=== PATIENT | female | born 1995 | race American Indian/Alaskan Native ===

== ENCOUNTER 2018-07-05 07:24 | Emergency (ER) | payer OTHER ==
[2018-07-05 07:33] VITALS: BP 134/83
[2018-07-05] MEDS ORDERED: NORCO 7.5/325 PO ONE (07:42)
[2018-07-05] MEDS ORDERED: BACTRIM DS PO ONE (07:42)
[2018-07-05] MEDS ORDERED: XYLOCAINE 1% MPF 5 mL INFILTRATI ONE (07:42)
--- NOTE | 2018-07-05 07:43 | Emergency Department Report ---
Abscess Boil HPI - HPI Chief Complaint: Skin/Abscess/Foreign Body Stated Complaint: BOIL/ABSCESS ON BUTTOCK Time Seen by Provider: 07/05/18 07:38 Duration: 5 Days Location: Other (BUTTOCKS) Severity: Mild History: Yes Pain, Yes Purulent Drainage, Yes Previous History, No Fever, No Numbness, No Foreign Body, No Insect Bite HPI: 22 YO AA FEMALE WITH ABSCESS ON R BUTTOCKS. NO FEVER. NO HX OF THE SAME. NO PMH. NO HOME MEDS. Home Medications: Previous Rx's Medication Instructions Recorded Last Taken Type Ibuprofen [Motrin] 800 mg PO Q8HR PRN #30 tablet 07/05/18 Unknown Rx Sulfamethoxazole/Trimethoprim 1 each PO BID #10 tablet 07/05/18 Unknown Rx [Bactrim DS TAB] Allergies/Adverse Reactions: Allergies Allergy/AdvReac Type Severity Reaction Status Date / Time No Known Allergies Allergy Verified 07/05/18 07:31 ED Review of Systems ROS: Stated complaint: BOIL/ABSCESS ON BUTTOCK Other details as noted in HPI Comment: All other systems reviewed and negative Constitutional: denies: chills Eyes: denies: eye pain ENT: denies: ear pain Respiratory: denies: cough Cardiovascular: denies: dyspnea on exertion Endocrine: denies: flushing Gastrointestinal: denies: nausea Genitourinary: denies: urgency Musculoskeletal: denies: back pain Skin: as per HPI, lesions Neurological: denies: headache Psychiatric: denies: depression Hematological/Lymphatic: denies: easy bleeding ED Past Medical Hx - Past Medical History Previous Medical History?: Yes Hx Diabetes: Yes (taken off Metformin due to hypoglycemia 2013) Additional medical history: HS - Surgical History Past Surgical History?: No - Social History Smoking Status: Current Every Day Smoker Substance Use Type: None - Medications Home Medications: Home Medications Medication Instructions Recorded Confirmed Last Taken Type Ibuprofen [Motrin] 800 mg PO Q8HR PRN #30 tablet 07/05/18 Unknown Rx Sulfamethoxazole/Trimethoprim 1 each PO BID #10 tablet 07/05/18 Unknown Rx [Bactrim DS TAB] ED Abscess Boil Physical Exam - Exam General: Vital signs noted. No distress. Alert and acting appropriately. Size: 3 cm Exam: Yes Tenderness, Yes Fluctuance, Yes Surrounding Cellulites/Erythema, Yes Normal Neurologic Exam, Yes Normal Circulation, No Lymphangitis, No Crepitation, No Heart Murmur I & D Note - I & D Note I & D Note: Local anesthesia with 2% lido. I/D with no 10 blade. purulent drainage. cleaned area. allowed open to drain. pt educated on care. ED Course Vital Signs 07/05/18 07:28 Temperature 97.5 F L Pulse Rate 101 H Respiratory 16 Rate Blood Pressure 134/83 O2 Sat by Pulse 100 Oximetry Critical care attestation.: If time is entered above; I have spent that time in minutes in the direct care of this critically ill patient, excluding procedure time. ED Medical Decision Making - Medical Decision Making abscess I/D medicated for pain and started on abx - Differential Diagnosis simple abcess ED Disposition Clinical Impression: Abscess Disposition: TO HOME OR SELFCARE Is pt being admited?: No Does the pt Need Aspirin: No Condition: Stable Instructions: Abscess (ED) Additional Instructions: SOAK IN EPSOM SALTS THREE TIMES PER DAY MEDS ORDERED TODAY FOLLOW UP PCP REFERRAL BELOW Prescriptions: Ibuprofen [Motrin] 800 mg PO Q8HR PRN #30 tablet PRN Reason: Pain , Severe (7-10) Sulfamethoxazole/Trimethoprim [Bactrim DS TAB] 1 each PO BID #10 tablet Referrals: PRIMARY CARE, [Primary Care Provider] - 3-5 Days FLAVIO COATES MD [Staff Physician] - 3-5 Days Time of Disposition: 08:28
== END 2018-07-05 08:44 | disposition home or self-care (01) ==
LOC: ED 07:24
DX: L02.31 Cutaneous abscess of buttock (principal); F17.200 Nicotine dependence, unspecified, uncomplicated; E11.9 Type 2 diabetes mellitus without complications

== ENCOUNTER 2018-07-19 17:30 | Emergency (ER) | payer OTHER ==
[2018-07-19 17:46] VITALS: BP 149/78
[2018-07-19] MEDS ORDERED: XYLOCAINE 1% MPF 5 mL INFILTRATI ONE (21:44)
--- NOTE | 2018-07-19 22:17 | Emergency Department Report ---
ED General Adult HPI - General Chief complaint: Sore Throat Stated complaint: SOB/CHEST PAIN Time Seen by Provider: 07/19/18 21:35 Source: patient Mode of arrival: Ambulatory Limitations: No Limitations - History of Present Illness Initial comments: pt is a 23 y/o aaf who presents for hdradenitis left axillary not sob/chest pain or URI symptoms as stated in triage. pt states left axillary pain drainage no fever no chills no n/v symptoms exacerbated by movement and palpation symptoms relieved by nothing. Onset/Timin -: days(s) Location: upper extremity (left axillary ) Radiation: non-radiation Severity scale (0 -10): 5 Quality: burning, sharp, other (itching ) Consistency: constant Improves with: none Worsens with: movement, other (palpation) Associated Symptoms: denies other symptoms Treatments Prior to Arrival: none - Related Data Previous Rx's Medication Instructions Recorded Last Taken Type Ibuprofen [Motrin] 800 mg PO Q8HR PRN #30 tablet 07/05/18 Unknown Rx Sulfamethoxazole/Trimethoprim 1 each PO BID #10 tablet 07/05/18 Unknown Rx [Bactrim DS TAB] Cephalexin [Keflex] 500 mg PO TID 10 Days #30 capsule 07/19/18 Unknown Rx traMADol [Ultram] 50 mg PO Q6HR PRN #12 tablet 07/19/18 Unknown Rx Allergies Allergy/AdvReac Type Severity Reaction Status Date / Time No Known Allergies Allergy Verified 07/05/18 07:31 ED Review of Systems ROS: Stated complaint: SOB/CHEST PAIN Other details as noted in HPI Constitutional: denies: chills, fever Eyes: denies: eye pain, eye discharge, vision change ENT: denies: ear pain, throat pain Respiratory: denies: cough, shortness of breath, wheezing Cardiovascular: denies: chest pain, palpitations Endocrine: no symptoms reported Gastrointestinal: denies: abdominal pain, nausea, diarrhea Genitourinary: denies: urgency, dysuria, discharge Musculoskeletal: denies: back pain, joint swelling, arthralgia Skin: lesions (left axillary hydradenitis ) Neurological: denies: headache, weakness, paresthesias Psychiatric: denies: anxiety, depression Hematological/Lymphatic: denies: easy bleeding, easy bruising ED Past Medical Hx - Past Medical History Hx Diabetes: Yes (taken off Metformin due to hypoglycemia 2013) Additional medical history: HS - Surgical History Past Surgical History?: No - Social History Smoking Status: Current Every Day Smoker Substance Use Type: None - Medications Home Medications: Home Medications Medication Instructions Recorded Confirmed Last Taken Type Ibuprofen [Motrin] 800 mg PO Q8HR PRN #30 tablet 07/05/18 Unknown Rx Sulfamethoxazole/Trimethoprim 1 each PO BID #10 tablet 07/05/18 Unknown Rx [Bactrim DS TAB] Cephalexin [Keflex] 500 mg PO TID 10 Days #30 capsule 07/19/18 Unknown Rx traMADol [Ultram] 50 mg PO Q6HR PRN #12 tablet 07/19/18 Unknown Rx ED Physical Exam - General Limitations: No Limitations General appearance: alert, in no apparent distress - Head Head exam: Present: atraumatic, normocephalic - Eye Eye exam: Present: normal appearance, PERRL, EOMI - ENT ENT exam: Present: normal exam, normal orophraynx, mucous membranes moist, TM's normal bilaterally, normal external ear exam - Neck Neck exam: Present: normal inspection, full ROM. Absent: tenderness - Respiratory Respiratory exam: Present: normal lung sounds bilaterally. Absent: respiratory distress, wheezes, stridor, chest wall tenderness - Cardiovascular Cardiovascular Exam: Present: regular rate, normal heart sounds - GI/Abdominal GI/Abdominal exam: Present: soft, normal bowel sounds. Absent: tenderness, bruit, hernia - Rectal Rectal exam: Present: deferred - Extremities Exam Extremities exam: Present: normal inspection, tenderness (left axillary erythem fluctuant warm to touch mild purulent drainage ), normal capillary refill. A bsent: pedal edema, joint swelling, calf tenderness - Back Exam Back exam: Present: normal inspection, full ROM. Absent: tenderness, CVA tenderness (R), CVA tenderness (L), muscle spasm, rash noted - Neurological Exam Neurological exam: Present: alert, oriented X3, CN II-XII intact, normal gait, reflexes normal - Psychiatric Psychiatric exam: Present: normal affect, normal mood - Skin Skin exam: Present: warm, dry, intact, normal color. Absent: rash ED Course Vital Signs 07/19/18 17:40 Temperature 98.0 F Pulse Rate 93 H Respiratory 18 Rate Blood Pressure 149/78 O2 Sat by Pulse 98 Oximetry - I & D Left Arm Type of Procedure: Simple Site: lefat axillary Blade Size: 11 I & D Procedure: betadine prep, sterile dressing applied Progress: left axillary hydradenitis site cleaned with betadine, incision with 11 blade moderate purulent drainage, irrigated with 10 cc sterile saline, sterile dressing applied, pt given wound care instruction all bleeding is controlled. ED Medical Decision Making - Medical Decision Making this is hydradenitis I&D same, see procedure noted , sterile dressing intact , pt tolerated procedure with minimal distress plan: keflex, ultram, folllow up with [facility] in 2 days for wound check pt verbalized agreement and understanding of same, Critical care attestation.: If time is entered above; I have spent that time in minutes in the direct care of this critically ill patient, excluding procedure time. ED Disposition Clinical Impression: Hydradenitis Disposition: TO HOME OR SELFCARE Is pt being admited?: No Does the pt Need Aspirin: No Condition: Stable Instructions: Abscess (ED) Prescriptions: Cephalexin [Keflex] 500 mg PO TID 10 Days #30 capsule traMADol [Ultram] 50 mg PO Q6HR PRN #12 tablet PRN Reason: Pain Referrals: FLAVIO COATES MD [Primary Care Provider] - 3-5 Days Forms: Work/School Release Form(ED) Time of Disposition: 22:26
== END 2018-07-19 22:40 | disposition home or self-care (01) ==
LOC: ED 17:30
DX: L73.2 Hidradenitis suppurativa (principal); F17.200 Nicotine dependence, unspecified, uncomplicated; E11.9 Type 2 diabetes mellitus without complications
CPT/HCPCS: 99281

== ENCOUNTER 2018-10-25 23:32 | Emergency (ER) | payer OTHER ==
[2018-10-26 00:37] VITALS: BP 137/74
[2018-10-26] MEDS ORDERED: SOLU-Medrol IM ONE (04:41)
[2018-10-26] MEDS ORDERED: VISTARIL PO ONE (04:41)
[2018-10-26] MEDS ORDERED: PEPCID PO ONE (04:41)
--- NOTE | 2018-10-26 05:19 | Emergency Department Report ---
ED Rash HPI - HPI Chief Complaint: Skin Rash Stated Complaint: RASH ON FACE/BODY Time Seen by Provider: 10/26/18 04:35 Duration: 3 Days Location: Other (diffuse) Suspected Cause: Other (chemical) Rash Symptoms: Yes Itching, Yes Facial Swelling, No Tongue/Oral Swelling, No Breathing Difficulties, No Choking Sensation, No Wheezing/Dyspnea, No Peeling, No Blistering, No Fever, No Lightheaded, No Malaise, No Myalgias Severity: severe Other History: Patient is a 23-year-old -Citizen Of [place] female with a history of [id number] diabetes and is not on any medications at this time and sent to the ED with complaint of acute onset persistent itchy erythematous maculopapular rash diffusely for the last 3 days after using a new lotion and that she had never used before. Patient states that the rash is especially worse on her face where she had applied the lotion. The patient denies swollen lips, swollen tongue, shortness of breath, stridor, dysphonia, NaSal or Sinus congestion, swollen eyes, cough, nausea, vomiting, diarrhea, abdominal pain, fever or chills. ED Review of Systems ROS: Stated complaint: RASH ON FACE/BODY Other details as noted in HPI Comment: All other systems reviewed and negative Constitutional: no symptoms reported, see HPI. denies: chills, diaphoresis, fever, malaise, weakness Eyes: as per HPI. denies: eye pain, eye discharge, vision change ENT: as per HPI. denies: ear pain, throat pain, dental pain, hearing loss Respiratory: no symptoms reported, see HPI. denies: cough, orthopnea, shortness of breath, SOB with exertion, SOB at rest, stridor Cardiovascular: as per HPI. denies: chest pain, palpitations, dyspnea on exertion Endocrine: no symptoms reported, see HPI. denies: excessive sweating, increased hunger, increased urine, unexplained weight gain Gastrointestinal: as per HPI. denies: abdominal pain, nausea, vomiting, diar morgan, constipation, hematemesis Genitourinary: as per HPI. denies: urgency, dysuria, frequency, hematuria, discharge Musculoskeletal: as per HPI Skin: as per HPI, rash (diffuse maculopapular rashes), change in color (diffuse erythematous maculopapular rash), pruritus Neurological: as per HPI. denies: headache, weakness, numbness, paresthesias, confusion, abnormal gait Psychiatric: as per HPI, anxiety Hematological/Lymphatic: as per HPI ED Past Medical Hx - Past Medical History Hx Diabetes: Yes (taken off Metformin due to hypoglycemia 2013) Additional medical history: HS - Social History Smoking Status: Current Every Day Smoker Substance Use Type: None - Medications Home Medications: Home Medications Medication Instructions Recorded Confirmed Last Taken Type Ibuprofen [Motrin] 800 mg PO Q8HR PRN #30 tablet 07/05/18 Unknown Rx Sulfamethoxazole/Trimethoprim 1 each PO BID #10 tablet 07/05/18 Unknown Rx [Bactrim DS TAB] Cephalexin [Keflex] 500 mg PO TID 10 Days #30 capsule 07/19/18 Unknown Rx traMADol [Ultram] 50 mg PO Q6HR PRN #12 tablet 07/19/18 Unknown Rx Ranitidine HCl [Zantac] 150 mg PO Q12H #30 tablet 10/26/18 Unknown Rx diphenhydrAMINE [Benadryl CAP] 25 mg PO Q6HR PRN #30 capsule 10/26/18 Unknown R x methylPREDNISolone [Medrol] 4 mg PO DAILY #21 tab.ds.pk 10/26/18 Unknown Rx Rash Exam - Exam General: Vital signs noted. No distress. Alert and acting appropriately. HEENT: No Periorbital Edema, No Conjuctival Injection, No Chemosis, No Perioral Edema, No Tongue Edema, No Uvular Edema, No Compromised Airway, No Drooling Lungs: Yes Good Air Exchange, No Wheezes, No Ronchi, No Stridor, No Cough, No Labored Respirations, No Retractions, No Use of Accessory Muscles, No Other Abnormal Lung Sounds Heart: Yes Regular Skin: Yes Urticarial Rash, Yes Maculopapular Rash, Yes Erythema, No Morbilliform rash, No Bulla(e), No Excoriations, No Weeping, No Tenderness, No Edema, No Encrustations, No Other Other: Positive: Abdomen Normal, Neurologic Normal, Musculoskeletal Normal ED Course Vital Signs 10/25/18 10/26/18 23:42 00:48 Temperature 98.1 F 98.1 F Pulse Rate 111 H 87 Respiratory 18 18 Rate Blood Pressure 137/74 137/74 O2 Sat by Pulse 99 99 Oximetry - Reevaluation(s) Reevaluation #1: 10/26/18 05:21 Patient is alert and oriented 3 and is not in distress, tachycardic in triage. Patient was treated in the ED for acute allergic reaction and on reevaluation, patient's condition was resolved on medications, and tachycardia also resolved.. Patient was discharged home on Medrol Dosepak, Vistaril and Zantac, and the patient advised to follow-up with her primary care physician in 3-5 days for reevaluation, or return to the ED immediately if symptoms get worse. ED Medical Decision Making - Medical Decision Making Patient is alert and oriented 3 and is not in distress, tachycardic in triage. Patient was treated in the ED for acute allergic reaction and on reevaluation, patient's condition was resolved on medications, and tachycardia also resolved.. Patient was discharged home on Medrol Dosepak, Vistaril and Zantac, and the patient advised to follow-up with her primary care physician in 3-5 days for reevaluation, or return to the ED immediately if symptoms get worse. - Differential Diagnosis acute allergic reaction, irritant dermatitis, Urticaria Critical care attestation.: If time is entered above; I have spent that time in minutes in the direct care of this critically ill patient, excluding procedure time. ED Disposition Clinical Impression: Acute urticaria, Itching with irritation Acute allergic reaction Qualifiers: Encounter type: initial encounter Qualified Code(s): T78.40XA - Allergy, unspecified, initial encounter Disposition: DC-01 TO HOME OR SELFCARE Is pt being admited?: No Does the pt Need Aspirin: No Condition: Stable Instructions: Urticaria (ED), Allergies (ED), Itchy Skin (ED) Additional Instructions: Take medications with food, drink plenty of fluids and follow-up with your primary care physician in 3-5 days for reevaluation. Return to the ED immediately if symptoms get worse. Prescriptions: diphenhydrAMINE [Benadryl CAP] 25 mg PO Q6HR PRN #30 capsule PRN Reason: Itching methylPREDNISolone [Medrol] 4 mg PO DAILY #21 tab.ds.pk Ranitidine HCl [Zantac] 150 mg PO Q12H #30 tablet Referrals: RENO BENAVIDES MD [Primary Care Provider] - 3-5 Days Time of Disposition: 05:23 Print Language: TRISTANIAN
== END 2018-10-26 05:39 | disposition home or self-care (01) ==
LOC: ED 23:32
DX: T78.40XA Allergy, unspecified, initial encounter (principal); L50.9 Urticaria, unspecified; F17.200 Nicotine dependence, unspecified, uncomplicated; E11.9 Type 2 diabetes mellitus without complications; Z91.048 Other nonmedicinal substance allergy status; X58.XXXA Exposure to other specified factors, initial encounter
CPT/HCPCS: 96372; 99282; J2930; Q0177

== ENCOUNTER 2018-11-02 22:08 | Emergency (ER) | payer OTHER ==
[2018-11-02 22:17] VITALS: BP 135/78
--- NOTE | 2018-11-02 22:20 | Emergency Department Report ---
Blank Doc - Documentation Documentation: 23 y o female presents to ED cc of n/v/d with absd pain x 2 days labs ordered ACC eval
[2018-11-02 22:40] LABS: Basophils % (Auto) 0.2 % (0.0-1.8); Eosinophils # (Auto) 0.3 K/mm3 (0.0-0.4); Eosinophils % (Auto) 3.4 % (0.0-4.3); Hematocrit 34.7 % (30.3-42.9); Hemoglobin 11.3 gm/dl (10.1-14.3); Lymphocytes # (Auto) 3.2 K/mm3 (1.2-5.4); Lymphocytes % (Auto) 41.6 % (13.4-35.0); Mean Corpuscular HGB Conc 33 % (30-34); Mean Corpuscular Volume 74 fl (79-97); Monocytes # (Auto) 0.7 K/mm3 (0.0-0.8); Monocytes % (Auto) 9.1 % (0.0-7.3); Platelet Count 385 K/mm3 (140-440); Red Blood Count 4.68 M/mm3 (3.65-5.03); Red Cell Distribution Width 16.8 % (13.2-15.2)
[2018-11-02 22:59] LABS: Alanine Aminotransferase 11 units/L (7-56); Albumin 4.2 g/dL (3.9-5); BUN/Creatinine Ratio 16; Blood Urea Nitrogen 11 mg/dL (7-17); Calcium 8.9 mg/dL (8.4-10.2); Hemolysis Index 2
[2018-11-03 00:44] LABS: HCG Qualitative,Urine Negative (Negative)
[2018-11-03 00:47] LABS: Bilirubin,Urine NEG (Negative); Blood,Urine NEG (Negative); Color,Urine Yellow (Yellow); Mucus,Urine 3+ /HPF; Protein,Urine <15 mg/dL mg/dL (Negative)
--- NOTE | 2018-11-03 04:27 | Emergency Department Report ---
ED N/V/D HPI - General Chief complaint: Nausea/Vomiting/Diarrhea Stated complaint: VOMITTING ABD PAIN Time Seen by Provider: 11/02/18 22:19 Source: patient Mode of arrival: Ambulatory Limitations: No Limitations - History of Present Illness Initial comments: pt is a 23 y/o aaf with who presents for n/v/d x 2 days pt denies fever or chills , no fever no loss in bladder or bowel function, no hematuria, pt is tolerating po intake a this time MD complaint: nausea, vomiting -: Gradual, Sudden, minutes(s), hour(s), days(s), month(s), year(s) Description of Vomiting: food contents Description of Diarrhea: mucous Associated Abdominal Pain: Yes Location: per[place] Radiation: none Severity: moderate Pain Scale: 7 Quality: cramping, stabbing Consistency: constant Improves with: none, vomiting, movement Worsens with: none, eating, bowel movement Associated Symptoms: diaphoresis, malaise - Related Data Previous Rx's Medication Instructions Recorded Last Taken Type Ibuprofen [Motrin] 800 mg PO Q8HR PRN #30 tablet 07/05/18 Unknown Rx Sulfamethoxazole/Trimethoprim 1 each PO BID #10 tablet 07/05/18 Unknown Rx [Bactrim DS TAB] Cephalexin [Keflex] 500 mg PO TID 10 Days #30 capsule 07/19/18 Unknown Rx traMADol [Ultram] 50 mg PO Q6HR PRN #12 tablet 07/19/18 Unknown Rx Ranitidine HCl [Zantac] 150 mg PO Q12H #30 tablet 10/26/18 Unknown Rx diphenhydrAMINE [Benadryl CAP] 25 mg PO Q6HR PRN #30 capsule 10/26/18 Unknown Rx methylPREDNISolone [Medrol] 4 mg PO DAILY #21 tab.ds.pk 10/26/18 Unknown Rx Ibuprofen [Motrin 800 MG tab] 800 mg PO Q8HR PRN #30 tablet 11/03/18 Unknown Rx Nitrofurantoin [place]/M-Cryst 100 mg PO BID 7 Days #14 capsule 11/03/18 Unknown Rx [Macrobid CAP] Ondansetron [Zofran Odt] 4 mg PO Q8HR PRN 7 Days #14 11/03/18 Unknown Rx tab.rapdis Allergies Allergy/AdvReac Type Severity Reaction Status Date / Time cat dander Allergy Swelling Verified 10/25/18 23:38 ED Review of Systems ROS: Stated complaint: VOMITTING ABD PAIN Other details as noted in HPI ED Past Medical Hx - Past Medical History Previous Medical History?: Yes Hx Diabetes: Yes (taken off Metformin due to hypoglycemia 2013) Additional medical history: HS - Surgical History Past Surgical History?: No - Social History Smoking Status: Current Every Day Smoker - Medications Home Medications: Home Medications Medication Instructions Recorded Confirmed Last Taken Type Ibuprofen [Motrin] 800 mg PO Q8HR PRN #30 tablet 07/05/18 Unknown Rx Sulfamethoxazole/Trimethoprim 1 each PO BID #10 tablet 07/05/18 Unknown Rx [Bactrim DS TAB] Cephalexin [Keflex] 500 mg PO TID 10 Days #30 capsule 07/19/18 Unknown Rx traMADol [Ultram] 50 mg PO Q6HR PRN #12 tablet 07/19/18 Unknown Rx Ranitidine HCl [Zantac] 150 mg PO Q12H #30 tablet 10/26/18 Unknown Rx diphenhydrAMINE [Benadryl CAP] 25 mg PO Q6HR PRN #30 capsule 10/26/18 Unknown Rx methylPREDNISolone [Medrol] 4 mg PO DAILY #21 tab.ds.pk 10/26/18 Unknown Rx Ibuprofen [Motrin 800 MG tab] 800 mg PO Q8HR PRN #30 tablet 11/03/18 Unknown Rx Nitrofurantoin [place]/M-Cryst 100 mg PO BID 7 Days #14 capsule 11/03/18 Unknown Rx [Macrobid CAP] Ondansetron [Zofran Odt] 4 mg PO Q8HR PRN 7 Days #14 11/03/18 Unknown Rx tab.rapdis ED Physical Exam - General Limitations: No Limitations General appearance: alert, in no apparent distress - Head Head exam: Present: atraumatic, normocephalic - Eye Eye exam: Present: normal appearance, PERRL, EOMI Pupils: Present: normal accommodation - ENT ENT exam: Present: mucous membranes moist - Neck Neck exam: Present: normal inspection, full ROM. Absent: tenderness, meningismus, lymphadenopathy, thyromegaly - Respiratory Respiratory exam: Present: normal lung sounds bilaterally. Absent: respiratory distress, wheezes, stridor, chest wall tenderness - Cardiovascular Cardiovascular Exam: Present: regular rate, normal rhythm, normal heart sounds. Absent: systolic murmur, diastolic murmur, rubs, gallop - GI/Abdominal GI/Abdominal exam: Present: soft, normal bowel sounds - Rectal Rectal exam: Present: deferred - External exam: Present: normal external exam, erythema, swelling. Absent: lesions, lacerations, bleeding Speculum exam: Present: normal speculum exam, vaginal discharge. Absent: erythema - Extremities Exam Extremities exam: Present: normal inspection, full ROM, normal capillary refill, calf tenderness. Absent: tenderness - Back Exam Back exam: Present: full ROM. Absent: CVA tenderness (R), CVA tenderness (L), muscle spasm, paraspinal tenderness - Neurological Exam Neurological exam: Present: alert, oriented X3, CN II-XII intact, normal gait, r eflexes normal. Absent: abnormal gait - Psychiatric Psychiatric exam: Present: normal affect, normal mood - Skin Skin exam: Present: warm, dry, intact, normal color. Absent: rash ED Course Vital Signs 11/02/18 22:14 Temperature 98 F Pulse Rate 91 H Respiratory 18 Rate Blood Pressure 135/78 O2 Sat by Pulse 100 Oximetry ED Medical Decision Making - Lab Data Result diagrams: 11/02/18 22:27 11/02/18 22:27 Labs 11/02/18 11/02/18 11/02/18 22:27 22:27 Unknown WBC 7.6 RBC 4.68 Hgb 11.3 Hct 34.7 MCV 74 L MCH 24 L MCHC 33 RDW 16.8 H Plt Count 385 Lymph % (Auto) 41.6 H [place] % (Auto) 9.1 H Eos % (Auto) 3.4 Baso % (Auto) 0.2 Lymph # 3.2 [place] # 0.7 Eos # 0.3 Baso # 0.0 Seg Neutrophils % 45.7 Seg Neutrophils # 3.5 Sodium 137 Potassium 4.4 Chloride 104.7 Carbon Dioxide 20 L Anion Gap 17 BUN 11 Creatinine 0.7 Estimated GFR > 60 BUN/Creatinine Ratio 16 Glucose 125 H Calcium 8.9 Total Bilirubin 0.40 AST 12 ALT 11 Alkaline Phosphatase 79 Total Protein 7.4 Albumin 4.2 Albumin/Globulin Ratio 1.3 Lipase 16 Urine Color Yellow Urine Turbidity Cloudy Urine pH 6.0 Ur Specific Diamond 1.025 Urine Protein <15 mg/dl Urine Glucose (UA) Neg Urine Ketones Neg Urine Blood Neg Urine Nitrite Neg Ur Reducing Substances Not Reportable Urine Bilirubin Neg Urine Ictotest Not Reportable Urine Urobilinogen 2.0 Ur Leukocyte Esterase Lg Urine WBC (Auto) 23.0 H Urine RBC (Auto) 15.0 U Epithel Cells (Auto) 15.0 H Urine Mucus 3+ Urine HCG, Qual Negative - EKG Data EKG shows normal: sinus rhythm, axis, intervals, QRS complexes, ST-T waves Rate: normal, tachycardia - Radiology Data Radiology results: report reviewed, image reviewed (wall) - Medical Decision Making UA pos , EEU denies tive for leukocytes white blood cells blood cellus ua: pos: leus, wbc, will treat for UTI: dc to Home with rx for macrobid, ibuprofen, pt for dc to home in stable condition at th time Critical care attestation.: If time is entered above; I have spent that time in minutes in the direct care of this critically ill patient, excluding procedure time. ED Disposition Clinical Impression: UTI (urinary tract infection) Qualifiers: Urinary tract infection type: acute cystitis Hematuria presence: without hematuria Qualified Code(s): N30.00 - Acute cystitis without hematuria Disposition: DC-01 TO HOME OR SELFCARE Is pt being admited?: No Does the pt Need Aspirin: No (menstrual with gallop normal) Condition: Stable Instructions: Urinary Tract Infection in Children (ED) Prescriptions: Nitrofurantoin [place]/M-Cryst [Macrobid CAP] 100 mg PO BID 7 Days #14 capsule Ibuprofen [Motrin 800 MG tab] 800 mg PO Q8HR PRN #30 tablet PRN Reason: pain fever had Ondansetron [Zofran Odt] 4 mg PO Q8HR PRN 7 Days #14 tab.rapdis PRN Reason: Nausea And Vomiting Referrals: CÉSAR JIMENEZ MD [Primary Care Provider] - 3-5 Days Forms: Work/School Release Form(ED) Time of Disposition: 04:50
== END 2018-11-03 04:55 | disposition home or self-care (01) ==
LOC: ED 22:08
DX: N39.0 Urinary tract infection, site not specified (principal); F17.200 Nicotine dependence, unspecified, uncomplicated; E11.649 Type 2 diabetes mellitus with hypoglycemia without coma
CPT/HCPCS: 36415; 80053; 81001; 81025; 83690; 85025; 99283